=== PATIENT | female | born 1970 | race Caucasian/White ===

== ENCOUNTER → 2021-04-02 | Outpatient (CLI) | payer OTHER ==
[~2021-04-02] MED LIST: ATIVAN0.5 MG PO; CELEXA20 MG PO; GLUCOPHAGE500 MG/TAB PO; IRON 100 PLUS 21 TAB PO; KLONOPIN WAFE0.25 MG PO; LAMICTAL1 TAB PO; LAMICTAL150 MG PO; LEVAQUIN 5500 MG/TA1 PO; MINOCYCLINE HCL50 M1 PO; PRAVACHOL 40MG40 MG PO; PRILOSEC 20MG20 MG PO; ROPINIROLE HCL1 MG PO; SEPTRA DS 8001 TAB PO; SIMVASTATIN5 MG PO; TRIAMTERENE AND1 TA1 PO; VIIBRYD20 MG PO; VITAMIN C500 M6 PO; XANAX0.5 MG PO; ZESTRIL5 M1 PO
[2021-04-02 10:27] VITALS: BP 120/87
[2021-04-02 11:18] VITALS: BP 118/70
== END ==
LOC: AMSURD 09:50
DX: R11.2 Nausea with vomiting, unspecified (principal); R19.7 Diarrhea, unspecified
CPT/HCPCS: J2405; J7030

== ENCOUNTER → 2021-11-04 | Outpatient (CLI) | payer OTHER | LOC: LAB 11:56 | DX: L72.3 Sebaceous cyst (principal) ==

== ENCOUNTER 2023-06-29 10:23 | Emergency (ER) | payer OTHER ==
[~2023-06-29] VITALS: Ht 149.9 cm; Wt 77.5 kg
[2023-06-29 11:01] LABS: BASO # 0.01 K/mm3 (0.02-0.10); EOS # 1.52 K/mm3 (0.04-0.40); EOS % 11.3 % (1.0-5.0); LYMPH# 3.15 K/mm3 (1.50-4.00); MEAN CELL VOLUME 93 fl (78-100); MEAN CORPUSCULAR HEMOGLOBIN 32 pg (27-31); MEAN CORPUSCULAR HGB CONC 34 g/dL (33-37); MEAN PLATELET VOLUME 8.5 fl (7.4-10.4); MONO # 0.87 K/mm3 (0.20-0.80); NEU # 7.81 K/mm3 (1.40-6.50); PLATELET COUNT 351 K/mm3 (130-400); RED BLOOD COUNT 5.06 M/mm3 (4.10-5.30); WHITE BLOOD COUNT 13.5 K/mm3 (4.8-10.8)
[2023-06-29 11:06] LABS: ALBUMIN 3.9 g/dL (3.5-5.0); POTASSIUM 3.3 mmol/L (3.5-5.1)
[2023-06-29 11:07] LABS: CALCIUM 9.4 mg/dL (8.3-10.5)
[2023-06-29 11:08] LABS: TOTAL PROTEIN 6.3 g/dL (6.4-8.3)
[2023-06-29 11:10] LABS: TOTAL BILIRUBIN 0.3 mg/dL (0.2-1.2)
[2023-06-29] MEDS ORDERED: ONDANSETRON HYDR4 MG PO (13:12)
[2023-06-29 13:55] VITALS: BP 137/65
== END 2023-06-29 13:56 | disposition home or self-care (01) ==
LOC: ED 10:23
PROVIDERS: Nurse Practitioner Family
DX: K52.9 Noninfective gastroenteritis and colitis, unspecified (principal); F17.290 Nicotine dependence, other tobacco product, uncomplicated
CPT/HCPCS: J2060; J2405; J7030; Q9967